=== PATIENT | female | born 1965 | race Two or more races ===

== ENCOUNTER 2017-02-01 07:49 | Emergency (ER) | payer BC ==
[~2017-02-01] VITALS: Ht 175.3 cm; Wt 85.0 kg
[2017-02-01 07:50] VITALS: BP 125/90
== END 2017-02-01 09:21 | disposition home or self-care (01) ==
LOC: ED 07:49
DX: R22.0 Localized swelling, mass and lump, head (principal)
CPT/HCPCS: J0696

== ENCOUNTER 2017-03-06 10:26 | Emergency (ER) | payer BC ==
[~2017-03-06] VITALS: Ht 175.3 cm; Wt 81.2 kg
[2017-03-06 10:46] VITALS: Ht 175.3 cm; Wt 81.2 kg
[2017-03-06 16:19] VITALS: BP 130/89
== END 2017-03-06 16:19 | disposition home or self-care (01) ==
LOC: ED 10:26
DX: G89.29 Other chronic pain (principal); M54.5 Low back pain; I10 Essential (primary) hypertension
CPT/HCPCS: J1885; J7030

== ENCOUNTER 2019-05-07 20:42 | Emergency (ER) | payer BC ==
[~2019-05-07] VITALS: Ht 175.3 cm; Wt 126.6 kg
[2019-05-07 20:49] VITALS: Ht 175.3 cm; Wt 126.6 kg
[2019-05-07 22:10] VITALS: BP 145/71
== END 2019-05-07 22:10 | disposition home or self-care (01) ==
LOC: ED 20:42
DX: S52.502A Unspecified fracture of the lower end of left radius, initial encounter for closed fracture (principal); S52.602A Unspecified fracture of lower end of left ulna, initial encounter for closed fracture; I10 Essential (primary) hypertension; F17.210 Nicotine dependence, cigarettes, uncomplicated; W01.0XXA Fall on same level from slipping, tripping and stumbling without subsequent striking against object, initial encounter; Y93.89 Activity, other specified; Y92.89 Other specified places as the place of occurrence of the external cause; Y99.8 Other external cause status
CPT/HCPCS: Q0092